=== PATIENT | male | born 1975 | race Caucasian/White ===

== ENCOUNTER 2016-09-12 09:28 | Emergency (ER) | payer SELFPAY ==
[~2016-09-12] VITALS: Ht 180.3 cm; Wt 100.0 kg
[2016-09-12 09:30] VITALS: BP 172/98; PULSE 82; RESP 16; TEMP 98.1; O2SAT 96
[2016-09-12] MEDS ORDERED: NAPR500T PO (09:58)
[2016-09-12] MEDS ORDERED: CYCL1TAB29 PO (09:58)
[2016-09-12] MEDS ORDERED: PRED50 PO (09:58)
--- NOTE | 2016-09-12 09:59 | PD ---
HPI Chief Complaint: Back/ Neck Pain or Injury Time Seen by Provider: 09:40 Travel History International Travel<30 days: No Contact w/Intl Traveler<30days: No Traveled to known affect area: No History of Present Illness HPI Patient is a 40-year-old male who presents emergency for evaluation of right lower back pain. Patient states he has a herniated disc, he states this was diagnosed approximately 5 years ago. He reports for the last 3-4 weeks his pain got worse and radiates down the back of his leg. He denies any numbness or tingling, no bladder or bowel incontinence, no saddle paresthesia. He reports taking ibuprofen every 8 hours with no relief of his symptoms. He denies any new injury, trauma, falls. Denies any heavy lifting or new activities. PFSH Past Medical History Medical History: Denies Significant Hx Musculoskeletal: Yes Social History Alcohol Use: No Tobacco Use: No Substance Use: No Allergies-Medications (Allergen,Severity, Reaction): Coded Allergies: No Known Allergies (Unverified , 09/12/16) Review of Systems Except as stated in HPI: all other systems reviewed are Neg Musculoskeletal: Positive: Myalgias, Cramping, Pain Physical Exam Narrative GENERAL: Well-nourished, well-developed patient. SKIN: Warm and dry. HEAD: Normocephalic. EYES: No scleral icterus. No injection or drainage. NECK: Supple, trachea midline. No JVD or lymphadenopathy. CARDIOVASCULAR: Regular rate and rhythm without murmurs, gallops, or rubs. RESPIRATORY: Breath sounds equal bilaterally. No accessory muscle use. GASTROINTESTINAL: Abdomen soft, non-tender, nondistended. MUSCULOSKELETAL: No cyanosis, or edema. Tenderness to palpation in right paraspinal musculature in the lumbar region. 5/5 muscle strength in bilateral lower extremities. Positive pedal pulse, presents because of increasing capillary refill. Patient is neurovascularly intact. Full range of motion all 4 extremities. No spinal tenderness noted. BACK: Nontender without obvious deformity. No CVA tenderness. Data Data Last Documented VS Vital Signs Date Time Temp Pulse Resp B/P Pulse Ox O2 Delivery O2 Flow Rate FiO2 09/12/16 09:30 98.1 82 16 172/98 96 MDM Medical Decision Making Medical Screen Exam Complete: Yes Emergency Medical Condition: Yes Interpretation(s) Vital Signs Date Time Temp Pulse Resp B/P Pulse Ox O2 Delivery O2 Flow Rate FiO2 09/12/16 09:30 98.1 82 16 172/98 96 Differential Diagnosis Sprain versus strain versus spasm versus discogenic pain versus other Narrative Course Patient is a 40-year-old male who presented to emergency department for evaluation of right lower back pain. Patient has had this issue on and off for the last 5 years with exacerbation of the symptoms for the last 3-4 weeks. Patient is neurologically intact, there is no weakness in his lower extremities. He is mildly tender to palpation in right lower paraspinal muscatel in the lumbar region. Patient does not have a primary care provider in the area. He was encouraged to establish care with a local doctor for his ongoing management of his chronic health issues. Patient was encouraged to alternate heat and ice to affected area, continue range of motion x-rays, avoid bed rest. He was encouraged return to emergency department for any new or worsening symptoms. Patient and verbalized understanding of these instructions. Patient is stable for discharge. Diagnosis Primary Impression: Spasm of lumbar paraspinous muscle Additional Impression: Sciatica Qualified Code: M54.31 - Sciatica of right side Referrals: Primary Care Physician Patient Instructions: General Instructions, Muscle Spasm (ED), Muscle Strain ( ED), Sciatica (ED) Additional Instructions: Follow-up with a primary doctor Alternate heat and ice to affected area, continue range of motion exercises, avoid bed rest, avoid exacerbating activities Take medications as directed Return to emergency department with any new or worsening symptoms Med/Other Pt SpecificInfo: Prescription(s) given Scripts Cyclobenzaprine (Flexeril)10 Mg Tab10 Mg PO TID PRN (MUSCLE SPASM) 10 Days Ref 0 Prov:Alona Quach 09/12/16 Naproxen 500 Mg [id number] Mg PO BID #60 TAB Ref 0 Prov:Alona Quach 09/12/16 Prednisone 50 Mg Tab50 Mg PO DAILY #5 TAB Ref 0 Prov:Alona Quach 09/12/16 Disposition: 01 DISCHARGE HOME Condition: Stable Alona Quach Sep 12, 2016 09:59
== END 2016-09-12 10:20 | disposition home or self-care (01) ==
LOC: NEPB 09:28
DX: M62.830 Muscle spasm of back (principal); M54.31 Sciatica, right side
CPT/HCPCS: 99283

== ENCOUNTER 2016-10-26 10:04 | Emergency (ER) | payer SELFPAY ==
[~2016-10-26] VITALS: Ht 180.3 cm; Wt 95.0 kg
[~2016-10-26 10:04] MED LIST: CYCL1TAB29 PO; NAPR500T PO; PRED50 PO
[2016-10-26 10:06] VITALS: BP 189/89; PULSE 100; RESP 20; TEMP 98.1; O2SAT 98
[2016-10-26 10:08] VITALS: BP 156/92; PULSE 99; RESP 16; O2SAT 99
[2016-10-26] MEDS ORDERED: IBUPROFEN 800 MG TAB PO ONE (10:45)
[2016-10-26] MEDS ORDERED: IBUP800T23 PO (10:45)
[2016-10-26] MEDS ORDERED: CYCL1TAB29 PO (10:45)
[2016-10-26] MEDS ORDERED: METHOCARBAMOL 500 MG TAB PO ONE (10:45)
[2016-10-26] MEDS ORDERED: PRED50 PO (10:45)
[2016-10-26] MEDS ORDERED: predniSONE 20 MG TAB PO ONE (10:45)
--- NOTE | 2016-10-26 10:45 | PD ---
HPI Chief Complaint: Back/ Neck Pain or Injury Time Seen by Provider: 10:42 Travel History International Travel<30 days: No Contact w/Intl Traveler<30days: No Traveled to known affect area: No History of Present Illness HPI 40-year-old male presents to the emergency Department with complaint of right- sided low back pain that radiates down his right leg. As something going on for about 3 months. Says he was seen here 2 months ago and was given naproxen, Flexeril, and some steroids. He said the naproxen and Flexeril really didn't help with the steroids did relieve his symptoms for a short amount of time. He denies new or recent injury. Denies encopresis, incontinence, saddle anesthesias. Denies fever, chills, nausea, vomiting. Denies IV drug use, cancer. Denies loss of sensation, decreased range of motion, decreased strength to bilateral lower extremities. Reports intermittent paresthesias to the right lateral thigh area. Has been taking ibuprofen with minimal relief of symptoms. Pain is aggravated with standing up straight or for standing a long time. Pain is sometimes aggravated with walking. No known allergies. Denies significant past medical history. No other modifying factors or associated signs and symptoms. PFSH Past Medical History Musculoskeletal: Yes Social History Alcohol Use: No Tobacco Use: No Substance Use: No Allergies-Medications (Allergen,Severity, Reaction): Coded Allergies: No Known Allergies (Unverified , 10/26/16) Reported Meds & Prescriptions Reported Meds & Active Scripts Active Ibuprofen 800 Mg Tab 800 Mg PO Q6HR PRN Prednisone 50 Mg Tab 50 Mg PO DAILY Flexeril (Cyclobenzaprine HCl) 10 Mg Tab 10 Mg PO TID PRN 10 Days Review of Systems Except as stated in HPI: all other systems reviewed are Neg Physical Exam Narrative GENERAL: Well-nourished, well-developed male patient, in no acute distress; afebrile, nontoxic-appearing SKIN: Warm and dry. HEAD: Atraumatic. Normocephalic. EYES: Pupils equal and round. No scleral icterus. No injection or drainage. ENT: Mucosa pink and moist. Airway patent. NECK: Trachea midline. CARDIOVASCULAR: Regular rate. RESPIRATORY: No accessory muscle use. GASTROINTESTINAL: Abdomen soft, non-tender, nondistended. Positive bowel sounds. No hepato-splenomegaly, or palpable masses. No guarding. MUSCULOSKELETAL: Bilateral lower extremities supple and non-tense with 2+ pedal pulses and sensory intact; with full range of motion and 5/5 strength. 2 + DTRs bilaterally. Active dorsiflexion and extension of bilateral feet. Right straight leg raise is positive for low back pain. Left straight leg raise is negative for low back pain. Ambulatory in room with normal gait. Sitting up in bed at 90. No obvious deformities. No clubbing. No cyanosis. No edema. BACK: No midline point tenderness on palpation of the lumbar spine. Tenderness on palpation of right paraspinal and iliosacral area. No obvious deformities. NEUROLOGICAL: Awake and alert. Oriented 3. No obvious cranial nerve deficits. Motor grossly within normal limits. Normal speech. Moves all extremities. 5/5 strength to all extremities. Sensory intact. PSYCHIATRIC: Appropriate mood and affect; insight and judgment normal. Data Data Last Documented VS Vital Signs Date Time Temp Pulse Resp B/P Pulse Ox O2 Delivery O2 Flow Rate FiO2 10/26/16 10:08 99 16 156/92 99 10/26/16 10:06 98.1 Room Air Orders Prednisone (Deltasone) (10/26/16 10:45) Methocarbamol (Robaxin) (10/26/16 10:45) Ibuprofen (Motrin) (10/26/16 10:45) MDM Medical Decision Making Medical Screen Exam Complete: Yes Emergency Medical Condition: Yes Medical Record Reviewed: Yes Differential Diagnosis Sciatica, muscle spasm of back, low back pain Narrative Course 40-year-old male that was seen September 12 for same symptoms as today and consistent with right-sided sciatica and spasms of his lumbar paraspinous muscle. Denies new or recent injury. Denies encopresis, incontinence, saddle anesthesia. Denies IV drug use, cancer. Patient is afebrile and nontoxic- appearing. He has no midline point tenderness on palpation of his lumbar spine. Ambulatory in the room with normal gait. Patient requesting prescription for prednisone. Deltasone, Robaxin and ibuprofen administered in the ER. Deltasone, Robaxin, and ibuprofen prescribed for home. Patient verbalizes understanding and agreement with treatment plan. Patient is medically cleared and stable for discharge. Discussed reasons to return to the emergency department. Instructed patient to follow up with primary care provider. Patient agrees with treatment plan. The patients vital signs are stable and the patient is stable for outpatient follow-up and treatment. Patient discharged home, stable and in no acute distress. Diagnosis Primary Impression: Sciatica Qualified Code: M54.31 - Sciatica of right side Additional Impression: Spasm of lumbar paraspinous muscle Referrals: Primary Care Physician Patient Instructions: Acute Low Back Pain (ED), General Instructions, Muscle Spasm (ED), Sciatica (ED) Departure Forms: Tests/Procedures, Work Release Enter return to work date: Oct 27, 2016 Additional Instructions: Tylenol or ibuprofen as directed and as needed for pain Robaxin as prescribed and as needed for muscle spasms Heating pad and/or ice to affected area to reduce pain Avoid aggravating activities; increase activity as tolerated Follow-up with primary care provider Return to emergency department immediately with worsening of symptoms Med/Other Pt SpecificInfo: Prescription(s) given Scripts Ibuprofen 800 Mg [id number] Mg PO Q6HR PRN (PAIN) #30 TAB Ref 0 Prov:Phoebe Chowdhury 10/26/16 Prednisone 50 Mg Tab50 Mg PO DAILY #5 TAB Ref 0 Prov:Phoebe Chowdhury 10/26/16 Cyclobenzaprine (Flexeril)10 Mg Tab10 Mg PO TID PRN (MUSCLE SPASM) 10 Days Ref 0 Prov:Phoebe Chowdhury 10/26/16 Disposition: 01 DISCHARGE HOME Condition: Stable Phoebe Chowdhury Oct 26, 2016 10:45
== END 2016-10-26 11:06 | disposition home or self-care (01) ==
LOC: NEPB 10:04
DX: M54.31 Sciatica, right side (principal); M62.830 Muscle spasm of back; R20.2 Paresthesia of skin; Z87.39 Personal history of other diseases of the musculoskeletal system and connective tissue
CPT/HCPCS: 99283; J7512